=== PATIENT | female | born 1990 ===

== ENCOUNTER 2022-03-19 21:15 | Emergency (ER) | payer SELFPAY ==
--- NOTE | 2022-03-19 23:40 | Emergency Department Report ---
HPI - General Chief Complaint: Psych Time Seen by Provider: 03/19/22 23:25 - [facility] HPI: Room 14 The patient is a 31-year-old female present with chief complaint of aggressive behavior. Patient was reportedly a resident at [facility] and became aggressive with other residents and was striking out. In the ED the patient reportedly yelled out racial epithets towards staff. During my interview the patient is calm and denies complaints. Patient denies suicidal or homicidal ideation. ED Past Medical Hx - Past Medical History Previous Medical History?: Yes Hx Seizures: Yes Hx Psychiatric Treatment: Yes (Schizophrenia) - Surgical History Past Surgical History?: No - Family History Family history: no significant - Social History Smoking Status: Unknown if ever smoked Substance Use Type: None ED Review of Systems ROS: Stated complaint: BEHAVORAL DISTURBANCE Other details as noted in HPI Constitutional: no symptoms reported Eyes: denies: eye pain ENT: denies: throat pain Respiratory: no symptoms reported Cardiovascular: denies: chest pain Endocrine: no symptoms reported Gastrointestinal: denies: abdominal pain Genitourinary: denies: dysuria Musculoskeletal: denies: back pain Neurological: denies: headache Psychiatric: denies: suicidal thoughts Physical Exam - Physical Exam Vital Signs: Vital Signs 03/19/22 03/19/22 21:16 23:16 Temperature 98 F 98.9 F Pulse Rate 106 H 98 H Respiratory 18 20 Rate Blood Pressure 120/80 Blood Pressure 112/76 [Left] O2 Sat by Pulse 99 98 Oximetry Physical Exam: GENERAL: The patient is well-developed well-nourished female lying on stretcher not appearing to be in acute distress. [] HEENT: Normocephalic. Atraumatic. Extraocular motions are intact. Patient has moist mucous membranes. NECK: Supple. Trachea midline CHEST/LUNGS: Clear to auscultation. There is no respiratory distress noted. HEART/CARDIOVASCULAR: Regular. There is no tachycardia. There is no gallop rub or murmur. ABDOMEN: Abdomen is soft, nontender. Patient has normal bowel sounds. There is no abdominal distention. SKIN: There is no rash. There is no edema. There is no diaphoresis. NEURO: The patient is awake, alert, and oriented. The patient is cooperative. The patient has no focal neurologic deficits. The patient has normal speech. GCS 15 MUSCULOSKELETAL: There is no evidence of acute injury. ED Course Vital Signs 03/19/22 03/19/22 21:16 23:16 Temperature 98 F 98.9 F Pulse Rate 106 H 98 H Respiratory 18 20 Rate Blood Pressure 120/80 Blood Pressure 112/76 [Left] O2 Sat by Pulse 99 98 Oximetry ED Medical Decision Making - Lab Data Result diagrams: 03/20/22 00:00 03/20/22 00:00 Laboratory Tests 03/20/22 03/20/22 03/20/22 00:00 00:00 00:00 WBC RBC Hgb Hct MCV MCH MCHC RDW Plt Count Add Manual Diff Total Counted Seg Neuts % (Manual) Band Neutrophils % Lymphocytes % (Manual) Reactive Lymphs % (Man) Monocytes % (Manual) Eosinophils % (Manual) Basophils % (Manual) Metamyelocytes % Myelocytes % Promyelocytes % Blast Cells % Nucleated RBC % Seg Neutrophils # Man Band Neutrophils # Lymphocytes # (Manual) Abs React Lymphs (Man) Monocytes # (Manual) Eosinophils # (Manual) Basophils # (Manual) Metamyelocytes # Myelocytes # Promyelocytes # Blast Cells # WBC Morphology Hypersegmented Neuts Hyposegmented Neuts Hypogranular Neuts Smudge Cells Toxic Granulation Toxic Vacuolation Dohle Bodies Pelger-Huet Anomaly Aimee Rods Platelet Estimate Clumped Platelets Plt Clumps, EDTA Large Platelets Giant Platelets Platelet Satelliting Plt Morphology Comment RBC Morphology Dimorphic RBCs Polychromasia Hypochromasia Poikilocytosis Anisocytosis Microcytosis Macrocytosis Spherocytes Pappenheimer Bodies Sickle Cells Target Cells Tear Drop Cells Ovalocytes Helmet Cells Hernandez-Valliant Bodies [place] Rings Warwick Cells Bite Cells Crenated Cell Elliptocytes Acanthocytes (Spur) Rouleaux Hemoglobin C Crystals Schistocytes Malaria parasites Peter Bodies Hem Pathologist Commnt Sodium 138 Potassium 4.2 Chloride 103.9 Carbon Dioxide 22 Anion Gap 16 BUN 11 Creatinine 0.7 Estimated GFR > 60 BUN/Creatinine Ratio 16 Glucose 125 H Calcium 9.8 HCG, Qual Salicylates < 0.3 L Acetaminophen 5.0 L Plasma/Serum Alcohol 03/20/22 03/20/22 03/20/22 00:00 00:00 00:00 WBC 13.6 H RBC 4.54 Hgb 13.5 Hct 39.9 MCV 88 MCH 30 MCHC 34 RDW 14.3 Plt Count 265 Add Manual Diff Complete Total Counted 100 Seg Neuts % (Manual) 69.0 Band Neutrophils % 4.0 Lymphocytes % (Manual) 13.0 L Reactive Lymphs % (Man) 0 Monocytes % (Manual) 12.0 H Eosinophils % (Manual) 1.0 Basophils % (Manual) 0 Metamyelocytes % 1.0 Myelocytes % 0 Promyelocytes % 0 Blast Cells % 0 Nucleated RBC % Not Reportable Seg Neutrophils # Man 9.4 H Band Neutrophils # 0.5 Lymphocytes # (Manual) 1.8 Abs React Lymphs (Man) 0.0 Monocytes # (Manual) 1.6 H Eosinophils # (Manual) 0.1 Basophils # (Manual) 0.0 Metamyelocytes # 0.1 Myelocytes # 0.0 Promyelocytes # 0.0 Blast Cells # 0.0 WBC Morphology Not Reportable Hypersegmented Neuts Not Reportable Hyposegmented Neuts Not Reportable Hypogranular Neuts Not Reportable Smudge Cells Not Reportable Toxic Granulation Not Reportable Toxic Vacuolation Not Reportable Dohle Bodies Not Reportable Pelger-Huet Anomaly Not Reportable Aimee Rods Not Reportable Platelet Estimate Consistent w auto Clumped Platelets Not Reportable Plt Clumps, EDTA Not Reportable Large Platelets Not Reportable Giant Platelets Not Reportable Platelet Satelliting Not Reportable Plt Morphology Comment Not Reportable RBC Morphology Normal Dimorphic RBCs Not Reportable Polychromasia Not Reportable Hypochromasia Not Reportable Poikilocytosis Not Reportable Anisocytosis Not Reportable Microcytosis Not Reportable Macrocytosis Not Reportable Spherocytes Not Reportable Pappenheimer Bodies Not Reportable Sickle Cells Not Reportable Target Cells Not Reportable Tear Drop Cells Not Reportable Ovalocytes Not Reportable Helmet Cells Not Reportable Hernandez-Valliant Bodies Not Reportable [place] Rings Not Reportable Leilani Cells Not Reportable Bite Cells Not Reportable Crenated Cell Not Reportable Elliptocytes Not Reportable Acanthocytes (Spur) Not Reportable Rouleaux Not Reportable Hemoglobin C Crystals Not Reportable Schistocytes Not Reportable Malaria parasites Not Reportable Peter Bodies Not Reportable Hem Pathologist Commnt No Sodium Potassium Chloride Carbon Dioxide Anion Gap BUN Creatinine Estimated GFR BUN/Creatinine Ratio Glucose Calcium HCG, Qual Negative Salicylates Acetaminophen Plasma/Serum Alcohol < 0.01 - Differential Diagnosis Schizophrenia Critical care attestation.: If time is entered above; I have spent that time in minutes in the direct care of this critically ill patient, excluding procedure time. ED Disposition Clinical Impression: Schizophrenia, Aggressive behavior Disposition: 30 STILL A PATIENT Is pt being admited?: No Does the pt Need Aspirin: No Condition: Stable Time of Disposition: 02:35 (Awaiting eval)
[2022-03-20 00:34] LABS: Blood Urea Nitrogen 11 mg/dL (7-17); Calcium 9.8 mg/dL (8.4-10.2); Hemolysis Index 6
[2022-03-20 00:37] LABS: Hematocrit 39.9 % (30.3-42.9); Hemoglobin 13.5 gm/dl (10.1-14.3); Mean Corpuscular HGB Conc 34 % (30-34); Mean Corpuscular Volume 88 fl (79-97); Platelet Count 265 K/mm3 (140-440); Red Blood Count 4.54 M/mm3 (3.65-5.03); Red Cell Distribution Width 14.3 % (13.2-15.2)
[2022-03-20 00:50] LABS: BUN/Creatinine Ratio 16
[2022-03-20 01:14] LABS: Band Neutrophils # (Manual) 0.5 K/mm3; Basophils % (Manual) 0 % (0.0-1.8); Total Cells Counted 100
[2022-03-20 01:15] LABS: Platelet Estimate Consistent w Auto; RBC Morphology Normal
[2022-03-20 05:31] LABS: Bilirubin,Urine NEG (Negative); Blood,Urine MOD (Negative); Color,Urine Amber (Yellow); Protein,Urine <15 mg/dL mg/dL (Negative); Urobilinogen,Urine < 2.0 mg/dL (<2.0)
[2022-03-20 05:37] LABS: Bacteria,Urine 4+ /HPF (Negative); Calcium Oxalate Crystals,Urine 2+; Mucus,Urine FEW /HPF
[2022-03-20 05:41] LABS: Amphetamine Screen,Urine PRESUMPTIVE NEGATIVE; Benzodiazepines Screen,Urine PRESUMPTIVE POSITIVE; Cannabinoid Screen,Urine PRESUMPTIVE NEGATIVE; Cocaine Screen,Urine PRESUMPTIVE NEGATIVE; Methadone Screen,Urine PRESUMPTIVE NEGATIVE; Opiate Screen,Urine PRESUMPTIVE NEGATIVE
[2022-03-20 09:50] VITALS: BP 123/72
--- NOTE | 2022-03-20 10:52 | Consultation ---
History of Present Illness - Reason for Consult Consult date: 03/20/22 Reason for consult: agitation - History of Present Psychiatric Illness HPI: The patient is a 31-year-old female present with chief complaint of aggressive behavior. Patient was reportedly a resident at [facility] and became aggressive with other residents and was striking out. In the ED the patient reportedly yelled out racial epithets towards staff. During my interview the patient is calm and denies complaints. Patient denies suicidal or homicidal ideation. The patient was seen today. Her speech is a little garbled and she appears mentally delayed. She has poor insight. The patient is malodorous. She makes good eye contact. The patent says she was brought in by the ambulance for fighting. She says "but I wasn't." During my evaluation, the patient is calm and cooperative. She denies SI/HI or hallucinations. PAST PSYCHIATRIC HISTORY: unable to obtain PAST MEDICAL HISTORY: None reported Family Psychiatric History: None reported or documented SOCIAL HISTORY Unable to obtain REVIEW OF SYSTEMS Unable to obtain MENTAL STATUS EXAMINATION Unable to obtain Assessment and Plan (1) Hx of Schizophrenia Treatment Continue previously prescribed meds Sitter: Per primary Medical: Per primary Disposition: Do not recommend acute inpatient psychiatric treatment. The patient to follow up with outpatient in 7 to 14 days upon discharge The brand lead to give her all necessary outpatient resources Will sign off. Thanks Case staffed with Dr. Estes Medications and Allergies Allergies Allergy/AdvReac Type Severity Reaction Status Date / Time Unable to Assess Allergy Unverified 03/19/22 23:24 Mental Status Exam - Vital signs Last Vital Signs Temp 98.8 F 03/20/22 09:49 Pulse 101 H 03/20/22 09:49 Resp 18 03/20/22 09:49 BP 123/72 03/20/22 09:49 Pulse Ox 98 03/20/22 09:49 Results Result Diagrams: 03/20/22 00:00 03/20/22 00:00 Abnormal lab results 03/20/22 03/20/22 03/20/22 Range/Units 00:00 00:00 00:00 WBC (4.5-11.0) K/mm3 Lymphocytes % (Manual) (13.4-35.0) % Monocytes % (Manual) (0.0-7.3) % Seg Neutrophils # Man (1.8-7.7) K/mm3 Monocytes # (Manual) (0.0-0.8) K/mm3 Glucose 125 H (65-100) mg/dL Urine WBC (Auto) (0.0-6.0) /HPF Salicylates < 0.3 L (2.8-20.0) mg/dL Acetaminophen 5.0 L (10.0-30.0) ug/mL 03/20/22 03/20/22 Range/Units 00:00 05:10 WBC 13.6 H (4.5-11.0) K/mm3 Lymphocytes % (Manual) 13.0 L (13.4-35.0) % Monocytes % (Manual) 12.0 H (0.0-7.3) % Seg Neutrophils # Man 9.4 H (1.8-7.7) K/mm3 Monocytes # (Manual) 1.6 H (0.0-0.8) K/mm3 Glucose (65-100) mg/dL Urine WBC (Auto) 8.0 H (0.0-6.0) /HPF Salicylates (2.8-20.0) mg/dL Acetaminophen (10.0-30.0) ug/mL All other labs normal.
--- NOTE | 2022-03-20 12:30 | Event Note ---
Date: 03/20/22 Patient evaluated by mental health library helper today and deemed stable for discharge with outpatient follow-up.
== END 2022-03-20 15:21 | disposition home or self-care (01) ==
LOC: ED 21:15
DX: F20.9 Schizophrenia, unspecified (principal); R56.9 Unspecified convulsions; Z20.822 Contact with and (suspected) exposure to COVID-19
CPT/HCPCS: 36415; 80048; 80307; 81001; 84703; 85007; 85025; 99284; U0003; 80320; G0480